=== PATIENT | male | born 1960 | race Caucasian/White ===

== ENCOUNTER → 2020-04-05 | Outpatient (CLI) | payer BC, OTHER ==
[~2020-04-05] MED LIST: ETOD400T PO; HYDR1TAB PO; VARE1TAB17 PO
--- NOTE | 2020-04-05 13:49 | Diagnostic Imaging Report ---
INDICATION: Chronic hip pain. Time of exam 12:17 PM 2 views left hip were obtained. Acetabular alignment is normal. Femoral head and neck are intact. No fractures are seen. Left-sided rami are intact. IMPRESSION: No acute bony abnormality is detected. Dictated by: Dictated on workstation # [id number]
== END ==
LOC: RAD 11:49
PROVIDERS: ATTEND Family Medicine
DX: M25.552 Pain in left hip (principal)
CPT/HCPCS: 73502

== ENCOUNTER 2020-05-08 05:33 | Outpatient (RCR) | payer BC ==
[~2020-05-08] VITALS: Ht 170.2 cm; Wt 84.3 kg
[2020-05-09] MEDS ORDERED: HYDR-3817 PO (13:32)
== END 2020-05-08 10:24 | disposition home or self-care (01) ==
LOC: PREOP 05:33
PROVIDERS: ATTEND Surgery
DX: Z01.818 Encounter for other preprocedural examination (principal); D17.0 Benign lipomatous neoplasm of skin and subcutaneous tissue of head, face and neck; Z20.828 Contact with and (suspected) exposure to other viral communicable diseases
CPT/HCPCS: 87635

== ENCOUNTER 2020-05-09 11:06 | Day surgery (SDC) | payer BC ==
[~2020-05-09] VITALS: Ht 170.2 cm; Wt 84.3 kg
[2020-05-09] VITALS (9 sets, daily range): BP systolic 21–144; BP diastolic 60–88
[2020-05-09] MEDS ORDERED: ceFAZolin 2 GM IV Premixed 50 ML IV ONE (11:30)
[2020-05-09] MEDS ORDERED: LACTATED RINGERS 1,000 ML IV PRN (11:30)
[2020-05-09] MEDS ORDERED: fentaNYL INJECTION 100 MCG/2 ML AMP ONE (11:54)
[2020-05-09] MEDS ORDERED: MIDAZOLAM 2 MG/2 ML (VERSED) VIAL ONE (11:54)
[2020-05-09] MEDS ORDERED: LIDOCAINE/EPI 1%-1:200,000 (XYLOCAINE) 30 ML VIAL ONE (11:57)
[2020-05-09] MEDS ORDERED: proPOfol 200 MG/20 ML (DIPRIVAN) VIAL IV ONE (11:59)
[2020-05-09] MEDS ORDERED: LIDOCAINE PF 2% 5 ML (XYLOCAINE) VIAL ONE (12:00)
[2020-05-09] MEDS ORDERED: ONDANSETRON 4 MG/2 ML (SDV) Z0FRAN ONE (12:04)
[2020-05-09] MEDS ORDERED: SEVOFLURANE (ULTANE) 15 ML INHAL SOLN ONE ×3 (12:04→14:23)
--- NOTE | 2020-05-09 13:31 | Progress Note-Pre Operative ---
Pre-Operative Progress Note H&P Reviewed The H&P was reviewed, patient examined and no changes noted. Date Seen by Provider: May 09, 2020 Time Seen by Provider: 12:30 Date H&P Reviewed: May 09, 2020 Time H&P Reviewed: 12:30 Pre-Operative Diagnosis: sx large recurrent post scalp lipoma(4cm) ANIA VERMA MD May 09, 2020 13:31
[2020-05-09] MEDS ORDERED: HYDR-3817 PO (13:32)
--- NOTE | 2020-05-09 13:33 | Discharge Inst-Surgical ---
D/C Lap Instructions-LUCI New, Converted, or Re-Newed RX: RX on Chart Follow Up Appt in 2 weeks Activity as tolerated No driving for 24 hours No driving while on pain medications Incentive Spirometry use every 2 hours while awake Regular Diet Symptoms to Report: Fever over 101 degree F, Nausea/Vomiting Infection Signs and Symptoms to report: Increased redness, Foul odor of wound, Increased drainage Bathing instructions: May shower Operative Area Clean/Dry; Keep incision clean/dry If any problems/questions: Contact your physician or go to Emergency Room ANIA VERMA MD May 09, 2020 13:33
[2020-05-09] MEDS ORDERED: GLYCOPYRROLATE 0.2 MG/ML (ROBINUL) 2 ML VIAL ONE (13:42)
[2020-05-09] MEDS ORDERED: ACETAMINOPHEN 325 MG TABLET PO PRN (13:45)
[2020-05-09] MEDS ORDERED: morphine INJ 10 MG/ML 1ML (SYR OR VIAL) IVP PRN ×2 (13:45)
[2020-05-09] MEDS ORDERED: ONDANSETRON 4 MG/2 ML (SDV) Z0FRAN IVP PRN ×2 (13:45→14:30)
[2020-05-09] MEDS ORDERED: HYDROcodone/APAP 5 MG/325 MG (LORTAB) TAB PO ONE (13:45)
[2020-05-09] MEDS ORDERED: PHENYLEPHRINE 100 MCG/ML 10 ML (ANESTHESIA) SYR ONE (14:08)
[2020-05-09] MEDS ORDERED: HYDROmorphone 2 MG/ML VIAL (DILAUDID) IV ONE (14:30)
--- NOTE | 2020-05-09 20:47 | OPERATIVE REPORT ---
DATE OF SERVICE: 05/09/2020 ATTENDING PRIMARY CARE PHYSICIAN: Deshawn Wilkins MD. 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 POSTOPERATIVE DIAGNOSIS: Symptomatic recurrent posterior neck subfascial and intramuscular lipoma, >5 cm in size. PROCEDURE: Excision subfascial recurrent lipoma, 5.5 cm in size. SURGEON: Ania Verma MD. ANESTHESIA: General endotracheal. ESTIMATED BLOOD LOSS: Minimal. FINDINGS: Large recurrent lipoma, which was intramuscular and subfascial just greater than 5 cm in size. DISPOSITION: The patient tolerated the procedure well. INDICATIONS: The patient is a 59-year-old male referred over to us for symptomatic lesion of the posterior neck along the left side. He states that this has been present before in the past and had this excised approximately 15 years ago and over time, this has reemerged and has grown larger in size and become painful. Upon examination, he did have a well-circumscribed, however, deep recurrent lesion of the posterior neck, 5 cm in size. This was painful to palpation with no surrounding redness or erythema. DESCRIPTION OF PROCEDURE: The patient was brought to the operating room, laid supine on the table. After adequate IV pain and sedative medications and general endotracheal intubation, the patient was placed in right lateral decubitus position. The neck and back were prepped and draped in standard surgical fashion. A 1% lidocaine with epinephrine was used to anesthetize overlying skin around the lesion. Using the same previous skin incision, a transverse skin incision was made using a 15 blade. Subcutaneous tissue was then dissected using electrocautery. There was a significant amount of scar tissue. We then proceeded with meticulous dissection of the entirety of the lesion, which was subfascial and intramuscular using blunt dissection as well as electrocautery. We were able to encircle and completely excise the entirety of the mass in this manner with visualization of good hemostasis. The lesion was measured out and was just greater than 5 cm in size. Good hemostasis was achieved using electrocautery. We then proceeded with closure of the wound and the subcutaneous tissue was reapproximated using 3-0 Vicryl interrupted sutures. Skin was closed using 4-0 Monocryl running subcuticular suture. Wound was then cleaned and covered with Dermabond. The patient tolerated the procedure well. We will start IV normal pain medication as well as a clear liquid diet. Once he is tolerating clears, he has good pain control with oral pain medications, ambulating well, we will discharge him home. Due to his type of occupation, we will recommend that he does not work for the next two weeks as well and keep the area clean and dry. Job ID: [id number] DocumentID: [id number] Dictated Date: 05/09/2020 16:02:23 [employer]visor [employer] Date: 05/09/2020 20:46:24 Dictated By: ANIA VERMA MD MTDD
--- NOTE | 2020-05-10 07:34 | Anesthesia-General Post-Op ---
General Patient Condition Mental Status/LOC: Same as Preop Cardiovascular: Satisfactory Nausea/Vomiting: Absent Respiratory: Satisfactory Pain: Controlled Complications: Absent Post Op Complications Complications None Follow Up Care/Instructions Patient Instructions None needed. Anesthesia/Patient Condition Patient Condition Patient is doing well, no complaints, stable vital signs, no apparent adverse anesthesia problems. No complications reported per nursing. D/C home per [facility] [place] Criteria: Yes NILTON WASHINGTON CRNA May 10, 2020 07:34
== END 2020-05-09 16:05 | disposition home or self-care (01) ==
LOC: SDC 11:06
PROVIDERS: ATTEND Surgery
DX: D17.0 Benign lipomatous neoplasm of skin and subcutaneous tissue of head, face and neck (principal); F17.210 Nicotine dependence, cigarettes, uncomplicated
CPT/HCPCS: 36430; 87081; 88304